=== PATIENT | female | born 1965 | race Asian ===

== ENCOUNTER 2018-08-15 08:51 | Day surgery (SDC) | payer OTHER ==
[~2018-08-15 08:51] MED LIST: PROPOFOL 200 MG INJ
[2018-08-15] MEDS ORDERED: LIDOCAINE 100 MG SYRINGE (10:47)
[2018-08-15] MEDS ORDERED: PROPOFOL 40 ML (10:47)
== END 2018-08-15 12:40 | disposition home or self-care (01) ==
LOC: GIL 08:51
DX: Z12.11 Encounter for screening for malignant neoplasm of colon (principal); K64.8 Other hemorrhoids; D12.5 Benign neoplasm of sigmoid colon; K21.9 Gastro-esophageal reflux disease without esophagitis
CPT/HCPCS: 43239; 84703; 88305

== ENCOUNTER 2018-12-12 13:49 | Emergency (ER) | payer OTHER | END 2018-12-12 16:50 | disposition home or self-care (01) | LOC: FTE 13:49 | DX: S00.83XA Contusion of other part of head, initial encounter (principal); I10 Essential (primary) hypertension; W18.39XA Other fall on same level, initial encounter; Y92.9 Unspecified place or not applicable | CPT/HCPCS: 70450; 99284-25 ==

== ENCOUNTER 2019-03-22 21:21 | Emergency (ER) | payer OTHER ==
[2019-03-22] MEDS: ACETAMINOPHEN 325 MG TAB PO (23:11)
== END 2019-03-23 00:24 | disposition home or self-care (01) ==
LOC: FTE 03-23 00:24
DX: R50.9 Fever, unspecified (principal); I10 Essential (primary) hypertension
CPT/HCPCS: 81003; 99282